=== PATIENT | male | born 1960 | race Caucasian/White ===

== ENCOUNTER → 2020-06-04 | Outpatient (CLI) | payer BC ==
[~2020-06-04] MED LIST: CATHETER FLUSH 10 ML SYR IV PRN; HOLD METFORMIN - RECEIVED CONTRAST 20 ML VIAL IV SCH; IOHEXOL 350 MG/ML 100 ML (OMNIPAQUE 350) VIAL IV ONE; NS 100 ML (IVPB) BAG IV ONE
--- NOTE | 2020-06-04 09:15 | Diagnostic Imaging Report ---
EXAMINATION: CT Abdomen with intravenous contrast. TECHNIQUE: Multiple contiguous axial images were obtained through the abdomen after the administration of intravenous contrast. All CT scans use one or more of the following dose optimizing techniques: automated exposure control, MA and/or KvP adjustment based on a patient size and exam type, or iterative reconstruction. HISTORY: Abdominal pain. COMPARISON: None available. FINDINGS: Limited views of the lower thorax are unremarkable. The liver is steatotic. No focal liver lesions are seen. There is no biliary ductal dilation. Gallbladder is normal. Pancreas is normal. Spleen is normal. Adrenal glands are normal. A simple cyst is seen in the right kidney. A few calcifications in the lower pole of the right kidney may represent small stones. There is no hydronephrosis. Visualized bowel is normal in caliber without obstruction or inflammation. There is an incompletely imaged area of stranding in the omentum at the inferior margin of the [id number]. No free fluid or air. No abdominal lymphadenopathy. Aorta is normal in caliber without aneurysm. There are no suspicious osseus lesions. IMPRESSION: 1. There is an incompletely imaged area of fat stranding at the inferior margin of the field of view within the omentum. The pelvis was not scanned and this is incompletely evaluated. An abdomen and pelvis CT would be required for further evaluation. 2. Hepatic steatosis. Dictated by: Dictated on workstation # [id number]
== END ==
LOC: RAD FS 08:16
PROVIDERS: ATTEND Nurse Practitioner Family
DX: K76.0 Fatty (change of) liver, not elsewhere classified (principal); R10.33 Periumbilical pain
CPT/HCPCS: 74160